=== PATIENT | male | born 1990 | race Caucasian/White ===

== ENCOUNTER → 2022-04-07 | Outpatient (CLI) | payer OTHER ==
[~2022-04-07] MED LIST: ISOVUE-370 76% 100ML VIAL As Ordered ONE
== END ==
LOC: M RAD 09:16
PROVIDERS: ATTEND Physician Assistant
DX: S06.890S Other specified intracranial injury without loss of consciousness, sequela (principal)

== ENCOUNTER 2022-06-02 07:19 | Emergency (ER) | payer OTHER ==
[~2022-06-02] VITALS: Ht 185.4 cm; Wt 119.7 kg
[2022-06-02] MEDS ORDERED: SUMA50TA2 PO (07:31)
[2022-06-02] MEDS ORDERED: AMIT-257 PO (07:31)
[2022-06-02] MEDS ORDERED: ACET-683 PO (07:32)
[2022-06-02] MEDS ORDERED: IBUP-359 PO (07:32)
[2022-06-02 09:08] LABS: BASO % 0.4 % (0.0-1.0); EOS # 0.2 10^3/uL (0.0-0.5); EOS % 3.1 % (0.0-3.0); HEMATOCRIT 43.9 % (42.0-52.0); HEMOGLOBIN 15.1 g/dl (13.5-17.5); LYMPH # 2.3 10^3/uL (1.5-5.0); LYMPH % 42.3 % (24.0-44.0); MEAN CORPUSCULAR HEMOGLOBIN 31.4 pg (27.0-33.0); MEAN CORPUSCULAR HGB CONC 34.4 g/dl (32.0-36.5); MEAN CORPUSCULAR VOLUME 91.3 fl (80.0-96.0); MONO # 0.5 10^3/uL (0.0-0.8); MONO % 8.5 % (2.0-8.0); NEUTROPHILS # 2.5 10^3/uL (1.5-8.5); NEUTROPHILS % 45.3 % (36.0-66.0); PLATELET COUNT, AUTOMATED 274 10^3/uL (150-450); RED BLOOD COUNT 4.81 10^6/uL (4.30-6.10); WHITE BLOOD COUNT 5.5 10^3/uL (4.0-10.0)
[2022-06-02 09:28] LABS: ALBUMIN 4.4 G/DL (3.2-5.2); ALKALINE PHOSPHATASE 45 U/L (46-116); ALT/SGPT 28 U/L (7.0-40); AST/SGOT 19 U/L (<34); BILIRUBIN,TOTAL 0.5 MG/DL (0.3-1.2); BLOOD UREA NITROGEN 26 MG/DL (9-23); CALCIUM LEVEL 9.1 MG/DL (8.5-10.1); CARBON DIOXIDE LEVEL 28 MMOL/L (20-31); CHLORIDE LEVEL 103 MMOL/L (98-107); GLOMERULAR FILTRATION RATE > 60.0 (>60); GLUCOSE, FASTING 99 MG/DL (60-100); MAGNESIUM LEVEL 1.9 MG/DL (1.8-2.4); POTASSIUM SERUM 4.8 MMOL/L (3.5-5.1); SODIUM LEVEL 136 MMOL/L (136-145); TOTAL PROTEIN 7.2 G/DL (5.7-8.2)
[2022-06-02 09:30] LABS: FREE THYROXINE INDEX 3.6 % (1.4-3.8); T UPTAKE 36.4 % (22.5-37.0); THYROID STIMULATING HORMONE 2.433 uIU/ML (0.55-4.78)
[2022-06-02] MEDS ORDERED: NS 1,000 ML IV ONE (15:15)
[2022-06-02] MEDS ORDERED: METOCLOPRAMIDE INJ 10MG/2ML VIAL IV ONE (15:15)
[2022-06-02] MEDS ORDERED: KETOROLAC 30 MG/ML 1ML VIAL IV ONE (15:15)
[2022-06-02] MEDS ORDERED: PRED20TA PO (15:32)
[2022-06-02] MEDS ORDERED: SUMA25TA3 PO (15:32)
[2022-06-02 16:48] VITALS: BP 146/67
== END 2022-06-02 17:04 | disposition home or self-care (01) ==
LOC: M ED 07:19
DX: H55.00 Unspecified nystagmus (principal); R51.9 Headache, unspecified; M54.2 Cervicalgia; R53.1 Weakness; R20.2 Paresthesia of skin; Z79.52 Long term (current) use of systemic steroids; Z79.1 Long term (current) use of non-steroidal anti-inflammatories (NSAID); Z79.899 Other long term (current) drug therapy
CPT/HCPCS: 70450; 70544; 70551; 72141; 80053; 83735; 84436; 84443; 84479; 85025; 86618; 96361; 96374; 99284; J1100; J1885; J2765